=== PATIENT | male | born 1990 | race Caucasian/White ===

== ENCOUNTER 2020-04-13 09:33 | Emergency (ER) | payer MEDICAID ==
[~2020-04-13] VITALS: Ht 188 cm; Wt 123.8 kg
[2020-04-13] MEDS ORDERED: HYDROcodone/APAP 5/325 TABLET ONE (09:57)
[2020-04-13] MEDS ORDERED: HYDROcodone/APAP 5/325 TABLET PO ONE (10:00)
--- NOTE | 2020-04-13 10:02 | NUR ---
pt medicated per emar. pt tolerated well.
[2020-04-13 10:06] VITALS: BP 158/104
--- NOTE | 2020-04-13 11:37 | NUR ---
Patient given discharge instructions and they have confirmed that they understand the instructions. Patient ambulatory with steady gait.
== END 2020-04-13 11:38 | disposition home or self-care (01) ==
LOC: ED 11:20
DX: K02.9 Dental caries, unspecified (principal)
CPT/HCPCS: 99283

== ENCOUNTER 2020-06-03 08:50 | Emergency (ER) | payer MEDICAID ==
[~2020-06-03] VITALS: Ht 188 cm; Wt 122.7 kg
--- NOTE | 2020-06-03 09:00 | NUR ---
BIB EMS, C/O SUDDEN ONSET OF SUBSTERNAL/EPIGASTIRC "PRESSURE" 06/02 AT 0400. PAIN CONTINUED T/O THE DAY AND NIGHT, UNABLE TO SLEEP. ALL MONITORS PLACED, HR TACHY AND WITH ACTIVITY HR IN THE 140'S. PT RPTS HX OF ANXIETY ATTACKS IN THE PAST AND RPTS THAT HE DOES GET CP WITH HIS ANXIETY. MALAIKA GOLDSMITH PA AT BEDSIDE. PT ASSESSMENT, POC DISCUSSED AND QUESTIONS ANSWERED. CALL LIGHT W/I REACH
[2020-06-03] MEDS ORDERED: ASPIRIN 81 MG TABLET CHEW ONE (09:17)
[2020-06-03] MEDS ORDERED: LORazepam 1MG TABLET ONE (09:17)
[2020-06-03] MEDS ORDERED: LORazepam 1MG TABLET PO ONE (09:30)
[2020-06-03] MEDS ORDERED: LORazepam 2 MG/ML, 1ML IVPush ONE (09:30)
[2020-06-03] MEDS ORDERED: ASPIRIN 81 MG TABLET CHEW PO ONE (09:30)
[2020-06-03] MEDS ORDERED: SODIUM CHLORIDE FLUSH 10ML SYR IVF ONE (09:30)
--- NOTE | 2020-06-03 09:32 | NUR ---
LONA, BROTHER [phone]
--- NOTE | 2020-06-03 09:32 | NUR ---
PATIENT GAVE VERBAL AUTHORIZATION FOR THIS RN TO SPEAK WITH HIS BROTHER RE: ED VISIT.
[2020-06-03 09:51] LABS: BASOPHILS % (AUTO) 0 % (0-1); EOSINOPHILS % (AUTO) 0 % (1-7); LYMPHOCYTES % (AUTO) 15 % (22-44); MEAN CORPUSCULAR HEMOGLOBIN 33.5 pg (27.5-34.5); MEAN CORPUSCULAR HGB CONC 34.9 g/dL (33.2-36.2); MEAN PLATELET VOLUME 8.2 fL (7.4-10.4); MONOCYTES % (AUTO) 10 % (2-9); NEUTROPHILS % (AUTO) 74 % (42-75); PLATELET COUNT 216 x10^3/uL (130-400); RED BLOOD COUNT 5.16 x10^6/uL (4.38-5.82); RED CELL DISTRIBUTION WIDTH 13.3 % (9.4-14.8)
[2020-06-03 10:00] LABS: MD NO
[2020-06-03 10:08] LABS: ALANINE AMINOTRANSFERASE 140 U/L (12-78); ALBUMIN 4.3 g/dL (3.4-5.0); ANION GAP 11 mmol/L (5-15); CALCIUM 9.8 mg/dL (8.5-10.1); CHLORIDE 101 mmol/L (98-107); CREATININE 1.13 mg/dL (0.7-1.3)
[2020-06-03 10:13] LABS: ALKALINE PHOSPHATASE 90 U/L (45-117); BILIRUBIN,TOTAL 1.5 mg/dL (0.2-1.0); TOTAL PROTEIN 8.3 g/dL (6.4-8.2); TROPONIN I < 0.015 ng/mL (0.000-0.045)
--- NOTE | 2020-06-03 10:34 | NUR ---
ALL TESTS RESULTED, CHART UP FOR RECHECK
[2020-06-03 11:11] VITALS: BP 146/93
--- NOTE | 2020-06-03 11:12 | NUR ---
PT VERBALIZES "I FEEL MUCH BETTER" PT DENIES PAIN. CHART UP FOR RECHECK
--- NOTE | 2020-06-03 11:43 | NUR ---
Patient/Caregiver given discharge instructions and they have confirmed that they understand the instructions. Patient ambulatory with steady gait.
== END 2020-06-03 11:43 | disposition home or self-care (01) ==
LOC: ED 10:02
DX: F41.1 Generalized anxiety disorder (principal); R07.9 Chest pain, unspecified; M54.9 Dorsalgia, unspecified; F17.200 Nicotine dependence, unspecified, uncomplicated
CPT/HCPCS: 36415; 71045; 80053; 83690; 84484; 85025; 93005; 99285; Q0177

== ENCOUNTER 2020-06-17 16:49 | Emergency (ER) | payer MEDICAID ==
[~2020-06-17] VITALS: Ht 190.5 cm; Wt 127.5 kg
--- NOTE | 2020-06-17 18:02 | NUR ---
director audience marketing note: Pt to room from SARAH lamb
--- NOTE | 2020-06-17 18:04 | NUR ---
AMBULATORY TO ED ROOM 33
--- NOTE | 2020-06-17 18:10 | NUR ---
REPORTS NUMBNESS RT ELBOW TO HAND X ABOUT A MONTH. DENIES TRAUMA, FALLS. PT RT HANDED. +ETOH INTAKE TODAY: 8 BEERS. IBUPROFEN THIS AM. C/O CHRONIC BACK PAIN. STATES HIS NEIGHBORS MADE HIM COME TO ED FOR EVAL OF HAND NUMBNESS. DECREASED STRENGTH RUE. RADIAL PULSE STRONG & REG. MULTIPLE SCRATCHES ON LT INNER FA. MINOR SCRATCH TO RT ANTERIOR ANKLE
[2020-06-17] MEDS ORDERED: HYDR-826 PO (18:16)
--- NOTE | 2020-06-17 19:06 | NUR ---
PT ENDORSED TO ANGEL ALEXANDRA RN.
[2020-06-17 19:49] VITALS: BP 142/80
--- NOTE | 2020-06-17 19:50 | NUR ---
DISCHARGED PER BRIGIDA ALEXANDRA. WRIST SPLINT ON RUE. PT AMBUATORY W/ STEADY GAIT.
== END 2020-06-17 19:52 | disposition home or self-care (01) ==
LOC: ED 18:47
DX: M79.621 Pain in right upper arm (principal); R20.2 Paresthesia of skin; M79.641 Pain in right hand; G89.29 Other chronic pain
CPT/HCPCS: 29125; 99283

== ENCOUNTER 2020-06-24 10:56 | Emergency (ER) | payer MEDICAID ==
[~2020-06-24] VITALS: Ht 190.5 cm; Wt 125.0 kg
[~2020-06-24 10:56] MED LIST: HYDR-826 PO
[2020-06-24] MEDS ORDERED: KETOROLAC 30 MG/1 ML ONE (11:10)
[2020-06-24] MEDS ORDERED: KETOROLAC 30 MG/1 ML IM ONE (11:30)
[2020-06-24] MEDS ORDERED: SODIUM CHLORIDE 0.9% 1,000ML IVBOLUS ONE (11:30)
--- NOTE | 2020-06-24 11:30 | NUR ---
PT BIB [facility] FOR LEFT LEG WEAKNESS/NUMBESS. PT STATES HE IS UNABLE TO MOVE HIS LEFT LEFT AND HAS NOT BEEN ABLE TO UNRINATE FOR 1 DAY BECAUSE HE IS UNABLE TO MOVE HIMSELF FROM HIS BED. STATES HE CALLED EMS HIMSELF FOR THIS REASON. IV STARTED. MONITORS CONNECTED. ORDERED BOLUS INFUSING. MEDICATED PER MD ORDER. STATES NO ADDITIONAL NEEDS AT THIS TIME
--- NOTE | 2020-06-24 11:47 | NUR ---
BLADDER SCANNED FOR 154ML
--- NOTE | 2020-06-24 11:47 | NUR ---
LAB AT BEDSIDE
[2020-06-24 12:07] LABS: BASOPHILS % (AUTO) 1 % (0-1); EOSINOPHILS % (AUTO) 0 % (1-7); LYMPHOCYTES % (AUTO) 22 % (22-44); MEAN CORPUSCULAR HEMOGLOBIN 33.3 pg (27.5-34.5); MEAN CORPUSCULAR HGB CONC 34.5 g/dL (33.2-36.2); MEAN PLATELET VOLUME 7.2 fL (7.4-10.4); MONOCYTES % (AUTO) 9 % (2-9); NEUTROPHILS % (AUTO) 69 % (42-75); PLATELET COUNT 278 x10^3/uL (130-400); RED BLOOD COUNT 4.65 x10^6/uL (4.38-5.82); RED CELL DISTRIBUTION WIDTH 13.6 % (9.4-14.8)
[2020-06-24 12:08] LABS: MD NO
[2020-06-24 12:19] LABS: ALBUMIN 3.8 g/dL (3.4-5.0); CHLORIDE 107 mmol/L (98-107)
[2020-06-24 12:25] LABS: ANION GAP 8 mmol/L (5-15); CALCIUM 7.9 mg/dL (8.5-10.1); CREATININE 0.76 mg/dL (0.7-1.3)
--- NOTE | 2020-06-24 13:16 | NUR ---
PT LAYING ON ORTIZ, CRYING, STATING HE IS HAVING AN ANXIETY ATTACK.
[2020-06-24] MEDS ORDERED: LORazepam 1MG TABLET ONE (13:21)
--- NOTE | 2020-06-24 13:22 | NUR ---
MD MADE AWARE OF AXIETY ATTACK/CHEST PAIN. ORDERED MEDS AND EKG
[2020-06-24] MEDS ORDERED: LORazepam 1MG TABLET PO ONE (13:30)
[2020-06-24 13:46] LABS: MICROSCOPIC INDICATED
--- NOTE | 2020-06-24 14:03 | NUR ---
PT RESTING CALMLY ON GURNEY. STATES "I FEEL MUCH BETTER NOW." STATES HE STILL HAS BACK PAIN, BUT FEELS BETTER. VSS. WILL CONTINUE TO MONITOR
[2020-06-24 16:16] VITALS: BP 164/95
== END 2020-06-24 16:18 | disposition home or self-care (01) ==
LOC: ED 11:03
DX: M54.16 Radiculopathy, lumbar region (principal); M54.41 Lumbago with sciatica, right side; F10.10 Alcohol abuse, uncomplicated; M79.605 Pain in left leg; R20.0 Anesthesia of skin; Y90.9 Presence of alcohol in blood, level not specified
CPT/HCPCS: 36415; 80048; 80320; 81001; 82040; 85025; 87086; 93005; 96360; 96372; 99284; J1885; J7030; G0480

== ENCOUNTER 2020-07-18 11:59 | Emergency (ER) | payer MEDICAID ==
[~2020-07-18] VITALS: Ht 188 cm; Wt 100.0 kg
--- NOTE | 2020-07-18 12:20 | NUR ---
PT BIB EMS FOR NOSE BLEED, RECTAL BLEEDING, AND DETOXING FROM ALCOHOL.PT STATES HIS LAST ALCOHOLIC DRINK WAS LAST NIGHT AT 2200. PT BLEEDING FROM RECTUM TIMES 3 DAYS. NOSE BLEED TIMES 2 DAYS. PT ALSO HAS CHRONIC BACK PAIN FROM BULGING DISCS L1-L5. PT HAS BRUISING TO LOWER BACK BUT UNSURE HOW HE GOT BRUISED, UNSURE IF HE FELL. PT HAS ABD PAIN 10/10. PIV STARTED BY EMS LEFT FOREARM 20GA. 200 ML NS GIVEN BY .
--- NOTE | 2020-07-18 12:22 | NUR ---
DR CENTENO BEDSIDE
[2020-07-18] MEDS ORDERED: ONDANSETRON 2MG/ML, 2ML IVPush ONE (12:30)
[2020-07-18] MEDS ORDERED: SODIUM CHLORIDE FLUSH 10ML SYR IVF ONE (12:30)
[2020-07-18] MEDS ORDERED: SODIUM CHLORIDE 0.9% 1,000ML IVBOLUS ONE (12:30)
[2020-07-18] MEDS ORDERED: SODIUM CHLORIDE 0.9% 1,000 ML IV ONE (12:30)
[2020-07-18] MEDS ORDERED: LORazepam 2 MG/ML, 1ML IVPush PRN (12:30)
[2020-07-18] MEDS ORDERED: THIAMINE 100 MG in SODIUM CHLORIDE 0.9% 50 ML IVPB ONE (12:30)
[2020-07-18 12:46] LABS: BASOPHILS % (AUTO) 1 % (0-1); EOSINOPHILS % (AUTO) 0 % (1-7); LYMPHOCYTES % (AUTO) 8 % (22-44); MEAN CORPUSCULAR HEMOGLOBIN 33.1 pg (27.5-34.5); MEAN CORPUSCULAR HGB CONC 34.3 g/dL (33.2-36.2); MONOCYTES % (AUTO) 2 % (2-9); NEUTROPHILS % (AUTO) 89 % (42-75); PLATELET COUNT 231 x10^3/uL (130-400); RED BLOOD COUNT 4.67 x10^6/uL (4.38-5.82)
[2020-07-18 12:49] LABS: MD NO
[2020-07-18] MEDS ORDERED: LORazepam 2 MG/ML, 1ML ONE (12:56)
[2020-07-18 12:57] LABS: ALANINE AMINOTRANSFERASE 97 U/L (12-78); ALBUMIN 4.3 g/dL (3.4-5.0); ANION GAP 11 mmol/L (5-15); CALCIUM 8.9 mg/dL (8.5-10.1); CHLORIDE 103 mmol/L (98-107); CREATININE 0.96 mg/dL (0.7-1.3)
[2020-07-18] MEDS ORDERED: ONDANSETRON 2MG/ML, 2ML ONE (12:58)
[2020-07-18 13:08] LABS: ALKALINE PHOSPHATASE 118 U/L (45-117); BILIRUBIN,TOTAL 0.6 mg/dL (0.2-1.0); TOTAL PROTEIN 8.3 g/dL (6.4-8.2)
--- NOTE | 2020-07-18 13:40 | NUR ---
BREAK RN: PT UPRIGHT ON GURNEY AWAKE & RESTLESS, REQUIRES FREQUENT REDIRECTION BUT COOPERATIVE, NAD, COMFORT MEASURES PROVIDED, CALL LIGHT WITHIN REACH.
[2020-07-18 14:10] VITALS: BP 116/77
[2020-07-18] MEDS ORDERED: HYDROcodone/APAP 5/325 TABLET PO ONE (14:30)
[2020-07-18] MEDS ORDERED: PANTOPRAZOLE 40 MG IV IVPush ONE (14:30)
[2020-07-18 14:33] LABS: MICROSCOPIC NOT IND
[2020-07-18] MEDS ORDERED: PANTOPRAZOLE 40 MG IV ONE (14:42)
[2020-07-18] MEDS ORDERED: HYDROcodone/APAP 5/325 TABLET ONE (14:43)
--- NOTE | 2020-07-18 15:50 | NUR ---
PT SITTING ON EDGE OF BED WITH BLOOD ON ARM. PT STATES HE WANTS TO GO HOME AND WANTS TO GET HELP AT [facility], [place]. PT TOOK IV OUT HIMSELF. PT SIGNED AMA FORM AND WAS MADE AWARE OF POSSIBLE CONSEQUENCES OF LEAVING AMA. DR CENTENO ADVISED.
== END 2020-07-18 15:53 | disposition left against medical advice (07) ==
LOC: ED 13:31
DX: K29.20 Alcoholic gastritis without bleeding (principal); F10.20 Alcohol dependence, uncomplicated; G89.29 Other chronic pain; M54.5 Low back pain; R07.9 Chest pain, unspecified; Z87.891 Personal history of nicotine dependence; Y90.9 Presence of alcohol in blood, level not specified
CPT/HCPCS: 36415; 80053; 80320; 81003; 83690; 85025; 96361; 96374; 96375; 99284; C9113; J2060; J2405; J3411; J7030; G0480

== ENCOUNTER 2020-08-04 16:28 | Emergency (ER) | payer MEDICAID ==
[~2020-08-04] VITALS: Ht 188 cm; Wt 125.0 kg
[2020-08-04] MEDS ORDERED: SODIUM CHLORIDE 0.9% 1,000ML IVBOLUS ONE (17:00)
[2020-08-04] MEDS ORDERED: THIAMINE 100 MG in SODIUM CHLORIDE 0.9% 50 ML IVPB ONE (17:00)
[2020-08-04 17:05] LABS: BASOPHILS % (AUTO) 1 % (0-1); EOSINOPHILS % (AUTO) 0 % (1-7); LYMPHOCYTES % (AUTO) 39 % (22-44); MEAN CORPUSCULAR HEMOGLOBIN 34.1 pg (27.5-34.5); MEAN CORPUSCULAR HGB CONC 34.9 g/dL (33.2-36.2); MEAN PLATELET VOLUME 7.1 fL (7.4-10.4); MONOCYTES % (AUTO) 8 % (2-9); NEUTROPHILS % (AUTO) 52 % (42-75); PLATELET COUNT 498 x10^3/uL (130-400); RED BLOOD COUNT 4.72 x10^6/uL (4.38-5.82); RED CELL DISTRIBUTION WIDTH 14.1 % (9.4-14.8)
[2020-08-04 17:06] LABS: MD NO
[2020-08-04 17:07] LABS: ALANINE AMINOTRANSFERASE 96 U/L (12-78); ALBUMIN 3.8 g/dL (3.4-5.0); ANION GAP 9 mmol/L (5-15); CALCIUM 8.7 mg/dL (8.5-10.1); CHLORIDE 109 mmol/L (98-107); CREATININE 0.95 mg/dL (0.7-1.3)
[2020-08-04 17:10] LABS: ALKALINE PHOSPHATASE 91 U/L (45-117); BILIRUBIN,TOTAL 0.2 mg/dL (0.2-1.0); TOTAL PROTEIN 7.8 g/dL (6.4-8.2)
[2020-08-04] MEDS ORDERED: LORazepam 2 MG/ML, 1ML ONE ×2 (17:31→17:58)
[2020-08-04] MEDS ORDERED: ONDANSETRON 2MG/ML, 2ML ONE (17:58)
[2020-08-04] MEDS ORDERED: LORazepam 2 MG/ML, 1ML IVPush PRN (18:00)
--- NOTE | 2020-08-04 18:01 | NUR ---
BREAK RN: OUTPATIENT CODER WAS IN TO SEE PT. UPDATED ERP ON PT STATUS, VERY SHAKY AND ANXIOUS. WILL MEDICATE WITH ATIVAN PER ORDERS. PT UNDERSTANDS POC, COOPERATIVE.
--- NOTE | 2020-08-04 18:20 | NUR ---
PT AMBULATED TO BR WITHOUT DIFFICULTY. Addendum: 08/04/20 at 1831 by HBENSON STATES HE FEELS MUCH BETTER AFTER ATIVAN. SHAKING AND ANXIETY MOSTLY RESOLVED.
--- NOTE | 2020-08-04 18:51 | NUR ---
TAXI VOUCHER PROVIDED. PT WAITING FOR TAXI IN LOBBY, AMBULATED WITHOUT DIFICULTY.
[2020-08-04 18:56] VITALS: BP 113/76
== END 2020-08-04 18:57 | disposition home or self-care (01) ==
LOC: ED 18:00
DX: F10.10 Alcohol abuse, uncomplicated (principal); Y90.9 Presence of alcohol in blood, level not specified
CPT/HCPCS: 36415; 80053; 80320; 83690; 85025; 96365; 96375; 99284; J2060; J3411; J7030; G0480

== ENCOUNTER 2020-08-24 07:37 | Emergency (ER) | payer MEDICAID ==
[~2020-08-24] VITALS: Ht 188 cm; Wt 120.0 kg
--- NOTE | 2020-08-24 07:38 | NUR ---
PATIENT ARRIVES WITH SARAH FROM [facility] HE [facility], STATES HE SELF MEDICATED HIS CHRONIC LUMBAR PAIN WITH WHISKY, STATES DRANK 2-3 PINTS IN LAST 5 HOURS. AOX4, SLURS, ABLE TO WALK WITH ASSITANCE.
--- NOTE | 2020-08-24 08:23 | NUR ---
patient good on feet. states wants to go home. helped him to get home, gave him mt instructions to arrange transportation and showed him phone
[2020-08-24 08:24] VITALS: BP 110/78
== END 2020-08-24 08:25 | disposition home or self-care (01) ==
LOC: ED 07:44
DX: G89.29 Other chronic pain (principal); M54.5 Low back pain; F10.20 Alcohol dependence, uncomplicated; Y90.9 Presence of alcohol in blood, level not specified
CPT/HCPCS: 99283

== ENCOUNTER 2020-12-23 17:46 | Emergency (ER) | payer MEDICAID ==
[~2020-12-23] VITALS: Ht 190.5 cm; Wt 127.0 kg
--- NOTE | 2020-12-23 17:56 | NUR ---
THIS IS A 30 YO M BIB EMS FROM [facility]ISON W/ C/O CP X12 YEARS "WORSE WHEN FEELING CLAUSTROPHIC" PT THINKS BEING IN PRISON MAY BE EXACERBATING CP. HX ANXIETY. PT STATES IS HAVING SEVERE ANXIETY R/T FIRST TIME IN HANDCUFFS. PT TREMULOUS DURING EKG. TACHYCARDIC, OTHER VS WDL. PER EMS PT RECEIVED A TOTAL OF 30MG VALIUM AND 325MG ASPIRIN MIME ARTIST. LAW ENFORCEMENT AT BEDSIDE, RESP EVEN AND UNLABORED, NADN. AWAITING ED EVAL.
[2020-12-23] MEDS ORDERED: LORazepam 2 MG/ML, 1ML ONE (18:21)
--- NOTE | 2020-12-23 18:27 | NUR ---
PT MEDICATED PER EMAR.
[2020-12-23] MEDS ORDERED: LORazepam 2 MG/ML, 1ML IVPush ONE (18:30)
[2020-12-23 18:33] LABS: BASOPHILS % (AUTO) 1 % (0-1); EOSINOPHILS % (AUTO) 0 % (1-7); LYMPHOCYTES % (AUTO) 28 % (22-44); MEAN CORPUSCULAR HEMOGLOBIN 32.1 pg (27.5-34.5); MEAN CORPUSCULAR HGB CONC 34.3 g/dL (33.2-36.2); MEAN PLATELET VOLUME 7.1 fL (7.4-10.4); MONOCYTES % (AUTO) 12 % (2-9); NEUTROPHILS % (AUTO) 60 % (42-75); PLATELET COUNT 344 x10^3/uL (130-400); RED BLOOD COUNT 5.11 x10^6/uL (4.38-5.82); RED CELL DISTRIBUTION WIDTH 15.5 % (9.4-14.8)
[2020-12-23 18:57] LABS: ALANINE AMINOTRANSFERASE 61 U/L (12-78); ALBUMIN 4.1 g/dL (3.4-5.0); ANION GAP 13 mmol/L (5-15); CALCIUM 9.4 mg/dL (8.5-10.1); CHLORIDE 105 mmol/L (98-107); CREATININE 0.79 mg/dL (0.7-1.3)
[2020-12-23 19:02] LABS: ALKALINE PHOSPHATASE 110 U/L (45-117); BILIRUBIN,TOTAL 0.4 mg/dL (0.2-1.0); TOTAL PROTEIN 8.6 g/dL (6.4-8.2); TROPONIN I < 0.015 ng/mL (0.000-0.045)
[2020-12-23 20:18] VITALS: BP 170/92
[2020-12-23] MEDS ORDERED: CHLORDIAZEPOXIDE 25 MG CAPSULE ONE (20:23)
[2020-12-23] MEDS ORDERED: CHLORDIAZEPOXIDE 25 MG CAPSULE PO ONE (20:30)
--- NOTE | 2020-12-23 20:30 | NUR ---
PT APPEARS TO BE MORE RELAXED. PER OK TO DC PT W/ BP. PT REPORTS HX OF HTN AND HAS NOT TAKEN METOPROLOL. PT PROVIDED W/ RX FOR LIBRIUM 25MG PO Q6-8HR PRN WITHDRAWAL SYMPTOMS. PT DC W/ LAW ENFORCEMENT, WHEELED OUT OF ED. RESP EVEN AND UNLABORED, JORDIN.
== END 2020-12-24 07:57 ==
LOC: ED 12-24 07:33
DX: R07.89 Other chest pain (principal); F10.139 Alcohol abuse with withdrawal, unspecified; R45.1 Restlessness and agitation; R00.0 Tachycardia, unspecified; G89.29 Other chronic pain; Y90.0 Blood alcohol level of less than 20 mg/100 ml
CPT/HCPCS: 36415; 71045; 80053; 83690; 84484; 85025; 96372; 99284; J2060